=== PATIENT | female | born 2000 | race Caucasian/White ===

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

== ENCOUNTER 2022-04-28 16:03 | Emergency (ER) | payer MEDICAID ==
[~2022-04-28] VITALS: Ht 162.6 cm; Wt 93.0 kg
[2022-04-28 16:05] VITALS: BP_SYST 120
--- NOTE | 2022-04-28 16:20 | NUR ---
Patient triaged and placed in waiting room. VSS and patient appears in no acute distress at this time. Accompanied by MOTHER, awaiting available bed, and MD notified of need for MSE.
--- NOTE | 2022-04-28 18:40 | NUR ---
DR OAKLEY OUT TO TRIAGE ROOM FOR EVALUATION
[2022-04-28] MEDS ORDERED: DIPHENHYDRAMINE INJ 50 MG/ML VIAL IVP ONE (19:00)
[2022-04-28] MEDS ORDERED: PROCHLORPERAZINE EDISYLATE 10 MG/2 ML VIAL IVP ONE (19:00)
[2022-04-28] MEDS ORDERED: KETOROLAC TROMETHAMINE 15 MG VIAL IVP ONE (19:00)
[2022-04-28] MEDS ORDERED: NACL 0.9% 1,000 ML IV ONE (19:00)
[2022-04-28] MEDS ORDERED: ACETAMINOPHEN 500 MG TABLET PO ONE (19:00)
--- NOTE | 2022-04-28 19:26 | NUR ---
Patient to ER bed GARCIA to gown for evaluation. Side rails up. Report given to KAEL GREEN.
--- NOTE | 2022-04-28 19:30 | NUR ---
Received report from PETER Scott; assuming care of patient at this time.
--- NOTE | 2022-04-28 19:35 | NUR ---
Patient A/Ox4, VSS, ambulatory, resp even and unlabored. Patient in bed with safety precautions in place and patient's mother at bedside. Nad noted at this time.
--- NOTE | 2022-04-28 19:45 | NUR ---
# 20 gauge angiocath placed to right AC. Use of asceptic technique. Opsite placed over site. Blood return noted. Flushed with 10 cc of normal saline. No evidence of infiltration noted. Patient tolerated well.
--- NOTE | 2022-04-28 20:30 | NUR ---
Patient resting comfortably in bed with safety precautions in place. Nad noted at this time.
[2022-04-28] MEDS ORDERED: IMI50 PO (21:21)
[2022-04-28 21:30] VITALS: BP_SYST 118
--- NOTE | 2022-04-28 21:30 | NUR ---
Patient given written and verbal discharge instructions and verbalizes understanding. ER MD discussed with patient the results and treatment provided. Patient in stable condition. ID arm band removed. IV catheter removed intact and dressing applied, no active bleeding. Rx of Imitrex given. Patient educated on pain management and to follow up with PMD. Pain Scale . Opportunity for questions provided and answered. Medication side effect fact sheet provided. Patient accompanied by mother and in stable condition upon discharge. Nad noted at this time.
== END 2022-04-28 21:30 | disposition home or self-care (01) ==
LOC: SED 16:03
DX: R51.9 Headache, unspecified (principal); H53.149 Visual discomfort, unspecified; Z79.899 Other long term (current) drug therapy
CPT/HCPCS: 99285; 96374; 70450; 96375; 96361; 76376; 81025; J1200; J1885; J0780; J7030